=== PATIENT | female | born 1980 | race Caucasian/White ===

== ENCOUNTER 2018-07-28 07:39 | Inpatient (IN) | payer OTHER ==
[2018-07-25 10:45] LABS: ALANINE AMINOTRANSFERASE 44 U/L (12-78); ALBUMIN 3.7 g/dL (3.4-5.0); ANION GAP 10 mmol/L (5-15); CALCIUM 9.1 mg/dL (8.5-10.1); CHLORIDE 105 mmol/L (98-107)
[2018-07-25 10:47] LABS: ALKALINE PHOSPHATASE 91 U/L (45-117); BILIRUBIN,TOTAL 0.4 mg/dL (0.2-1.0); CREATININE 0.92 mg/dL (0.55-1.02); TOTAL PROTEIN 7.5 g/dL (6.4-8.2)
[~2018-07-28] VITALS: Ht 182.9 cm; Wt 134.9 kg
[~2018-07-28 07:39] MED LIST: BUPIVACAINE/PF-EPI 0.5% 1:200K ONE; HYDR25TA6 PO; LEVO125T63 PO; LIOT5TAB3 PO
[2018-07-28] MEDS ORDERED: LACTATED RINGERS 1,000 ML IV SCH (07:53)
[2018-07-28 08:05] VITALS: BP 145/89
[2018-07-28] MEDS ORDERED: MIDAZOLAM 1 MG/ML, 2ML ONE (09:59)
[2018-07-28] MEDS ORDERED: FENTANYL PF 250 MCG/5ML ONE (10:00)
[2018-07-28] MEDS ORDERED: DEXAMETHASONE 4 MG/ML, 1ML ONE (10:11)
[2018-07-28] MEDS ORDERED: CEFAZOLIN 1,000 MG ONE ×3 (10:23)
[2018-07-28] MEDS ORDERED: PROPOFOL 10 MG/ML, 20ML ONE (10:40)
[2018-07-28] MEDS ORDERED: ROCURONIUM 10MG/ML,5ML ONE (10:40)
[2018-07-28] MEDS ORDERED: SUCCINYLCHOLINE 20 MG/ML, 10ML ONE (10:40)
[2018-07-28] MEDS ORDERED: LIDOCAINE-MPF 2% ,5ML ONE (10:40)
[2018-07-28] MEDS ORDERED: PROMETHAZINE 25 MG/ML, 1ML IV PRN (11:00)
[2018-07-28] MEDS ORDERED: MORPHINE SULFATE 4 MG/ML, 1ML IVPush PRN (11:00)
[2018-07-28] MEDS ORDERED: ONDANSETRON 2MG/ML, 2ML IV PRN (11:00)
[2018-07-28] MEDS ORDERED: HYDROmorphone 2 MG/ML, 1ML IVPush PRN (11:00)
[2018-07-28] MEDS ORDERED: MEPERIDINE/PF 25MG/0.5ML IVPush PRN (11:00)
[2018-07-28] MEDS ORDERED: LABETALOL 5MG/ML, 20ML IV PRN (11:00)
[2018-07-28] MEDS ORDERED: ALBUTEROL SULFATE 2.5 MG/3 ML NPPB PRN (11:00)
[2018-07-28] MEDS ORDERED: DIAZEPAM 5 MG/ML, 2ML IVPush PRN (11:00)
[2018-07-28] MEDS ORDERED: PROMETHAZINE 12.5 MG SUPP PR PRN (11:00)
[2018-07-28] MEDS ORDERED: hydrALAzine 20 MG/ML, 1ML IV PRN ×2 (11:00→15:30)
[2018-07-28] MEDS ORDERED: EPHEDRINE 50 MG/ML, 1ML IVPush PRN (11:00)
[2018-07-28] MEDS ORDERED: ONDANSETRON ODT 8 MG PO PRN (11:00)
[2018-07-28] MEDS ORDERED: ACETAMINOPHEN 325 MG TABLET PO PRN ×2 (11:00→17:00)
[2018-07-28] MEDS ORDERED: OXYcodone 5 MG/5 ML ORAL.SOL UDC PO PRN (11:00)
[2018-07-28] MEDS ORDERED: MIDAZOLAM 1 MG/ML, 2ML IV PRN (11:00)
[2018-07-28] MEDS ORDERED: FENTANYL PF 100 MCG/2ML ONE ×3 (11:13→12:48)
[2018-07-28] MEDS ORDERED: OXYcodone 5 MG/5 ML ORAL.SOL UDC ONE (12:47)
[2018-07-28] MEDS ORDERED: ACETAMINOPHEN 650 MG/20.3 ML UDC ONE (12:48)
[2018-07-28] MEDS: FENTANYL PF 100 MCG/2ML IV PRN ×2 (12:52→13:00)
[2018-07-28] MEDS: ENOXAPARIN 30 MG/0.3 ML SQ SCH (15:14)
[2018-07-28] MEDS ORDERED: ACETAMINOPHEN 650 MG SUPP PR PRN (17:00)
[2018-07-28] MEDS ORDERED: ONDANSETRON 2MG/ML, 2ML ONE (18:50)
[2018-07-28] MEDS ORDERED: ONDANSETRON 2MG/ML, 2ML IVPush PRN (19:00)
[2018-07-28] MEDS: HYDROcodone/APAP 5/325 TABLET PO PRN (20:33)
[2018-07-28] MEDS: SODIUM CHLORIDE FLUSH 10ML SYR IVF SCH (20:33)
[2018-07-28 20:45] VITALS: BP 128/75
[2018-07-29 00:05] VITALS: BP 114/71
[2018-07-29] MEDS: HYDROcodone/APAP 5/325 TABLET PO PRN ×2 (02:30→06:30)
[2018-07-29] MEDS: ENOXAPARIN 30 MG/0.3 ML SQ SCH (02:30)
[2018-07-29 04:00] VITALS: BP 120/70
[2018-07-29 07:03] VITALS: BP 114/68
[2018-07-29] MEDS: SODIUM CHLORIDE FLUSH 10ML SYR IVF SCH (07:57)
[2018-07-29] MEDS ORDERED: HYDR-3240 PO (09:47)
== END 2018-07-29 10:15 | disposition home or self-care (01) | DRG 629 ==
LOC: OUT 07:39 → 4NOR 13:46 → DCLOUNGE 07-29 10:04
PROVIDERS: ADMIT Surgery; ATTEND Surgery
PROC: 4A11X4Z Monitoring of Peripheral Nervous Electrical Activity, External Approach (ICD-10-PCS; 2018-07-28)
PROC: 07T20ZZ Resection of Left Neck Lymphatic, Open Approach (ICD-10-PCS; principal; 2018-07-28 09:45)
DX: C73 Malignant neoplasm of thyroid gland (principal); C77.9 Secondary and unspecified malignant neoplasm of lymph node, unspecified; Z68.41 Body mass index [BMI] 40.0-44.9, adult; E66.01 Morbid (severe) obesity due to excess calories; E83.51 Hypocalcemia; E89.0 Postprocedural hypothyroidism; I10 Essential (primary) hypertension; E78.5 Hyperlipidemia, unspecified; E03.9 Hypothyroidism, unspecified; E55.9 Vitamin D deficiency, unspecified; Z90.710 Acquired absence of both cervix and uterus; F17.200 Nicotine dependence, unspecified, uncomplicated
CPT/HCPCS: 36415; 80053; 82310; 83970; 88305; G0378; J0690; J1100; J1650; J2250; J2405; J2704; J3010; J3490; C1760; J0330; J7120